=== PATIENT | male | born 1970 | race American Indian/Alaskan Native ===

== ENCOUNTER 2019-08-31 15:11 | Emergency (ER) | payer SELFPAY ==
--- NOTE | 2019-08-31 15:27 | Event Note ---
ED Screening Note Date of service: 08/31/19 Time: 15:24 ED Screening Note: presents with intentional overdose on trazadone 500 mg x about 2 hours ago This initial assessment/diagnostic orders/clinical plan/treatment(s) is/are subject to change based on patients health status, clinical progression and re- assessment by fellow clinical providers in the ED. Further treatment and workup at subsequent clinical providers discretion. Patient/guardian urged not to elope from the ED as their condition may be serious if not clinically assessed and managed. Initial orders include: labs
[2019-08-31 16:18] LABS: Basophils % (Auto) 0.4 % (0.0-1.8); Eosinophils % (Auto) 0.1 % (0.0-4.3); Hematocrit 46.8 % (35.5-45.6); Hemoglobin 15.7 gm/dl (11.8-15.2); Lymphocytes # (Auto) 0.7 K/mm3 (1.2-5.4); Lymphocytes % (Auto) 8.8 % (13.4-35.0); Mean Corpuscular HGB Conc 33 % (32-34); Mean Corpuscular Volume 94 fl (84-94); Monocytes # (Auto) 0.6 K/mm3 (0.0-0.8); Monocytes % (Auto) 8.1 % (0.0-7.3); Platelet Count 207 K/mm3 (140-440); Red Blood Count 4.98 M/mm3 (3.65-5.03)
[2019-08-31 16:19] LABS: Benzodiazepines Screen,Urine PRESUMPTIVE NEGATIVE; Cocaine Screen,Urine PRESUMPTIVE NEGATIVE; Methadone Screen,Urine PRESUMPTIVE NEGATIVE; Opiate Screen,Urine PRESUMPTIVE NEGATIVE
[2019-08-31 16:35] LABS: Amphetamine Screen,Urine PRESUMPTIVE POSITIVE; Cannabinoid Screen,Urine PRESUMPTIVE POSITIVE
[2019-08-31 16:37] LABS: Alanine Aminotransferase 16 units/L (7-56); Albumin 4.6 g/dL (3.9-5); BUN/Creatinine Ratio 13; Blood Urea Nitrogen 12 mg/dL (9-20); Calcium 9.1 mg/dL (8.4-10.2); Hemolysis Index 9
--- NOTE | 2019-08-31 16:57 | Emergency Department Report ---
History of Present Illness - General Chief Complaint: Overdose Stated Complaint: MH EVAL Time Seen by Provider: 08/31/19 15:23 Source: patient Mode of arrival: Ambulatory Limitations: No Limitations - History of Present Illness Initial Comments: 48-year-old male with history of schizophrenia presents to ED with suicide attempt. Patient states at around 1 PM he took five Trazadone 100 mg pills. Patient reports auditory hallucinations telling him to kill himself. Patient reports he is also going through some other problems in his life that he would not elaborate on. Patient reports previous suicide attempt in the past. MD Complaint: intentional overdose -: This afternoon Intent: suicide attempt How Overdose Was Discovered: other (presented to ER) Context: Intentional Overdose: hearing voices Associated Symptoms: depression, hallucinations Treatments Prior to Arrival: none - Related Data Previous Rx's Medication Instructions Recorded Last Taken Type FLUoxetine [PROzac] 40 mg PO DAILY #60 capsule 09/03/19 Unknown Rx Melatonin [Melatonin 5MG TAB] 5 mg PO QHS #30 tablet 09/03/19 Unknown Rx Nicotine [Habitrol] 21 mg TD DAILY #30 patch 09/03/19 Unknown Rx OLANzapine [Zyprexa] 20 mg PO DAILY #60 tablet 09/03/19 Unknown Rx Allergies Allergy/AdvReac Type Severity Reaction Status Date / Time No Known Allergies Allergy Unverified 08/31/19 15:17 ED Review of Systems ROS: Stated complaint: MH EVAL Other details as noted in HPI Comment: All other systems reviewed and negative Psychiatric: depression, auditory hallucinations, suicidal thoughts. denies: homicidal thoughts ED Past Medical Hx - Past Medical History Previous Medical History?: Yes Hx Arthritis: Yes Hx Psychiatric Treatment: Yes (Schizophrenia) - Surgical History Past Surgical History?: No - Social History Smoking Status: Current Every Day Smoker Substance Use Type: Marijuana - Medications Home Medications: Home Medications Medication Instructions Recorded Confirmed Last Taken Type FLUoxetine [PROzac] 40 mg PO DAILY #60 capsule 09/03/19 Unknown Rx Melatonin [Melatonin 5MG TAB] 5 mg PO QHS #30 tablet 09/03/19 Unknown Rx Nicotine [Habitrol] 21 mg TD DAILY #30 patch 09/03/19 Unknown Rx OLANzapine [Zyprexa] 20 mg PO DAILY #60 tablet 09/03/19 Unknown Rx ED Physical Exam - General Limitations: No Limitations General appearance: alert, in no apparent distress - Head Head exam: Present: atraumatic, normocephalic - Eye Eye exam: Present: normal appearance - ENT ENT exam: Present: mucous membranes moist - Neck Neck exam: Present: normal inspection - Respiratory Respiratory exam: Present: normal lung sounds bilaterally. Absent: respiratory distress - Cardiovascular Cardiovascular Exam: Present: regular rate, normal rhythm - GI/Abdominal GI/Abdominal exam: Present: soft. Absent: distended - Extremities Exam Extremities exam: Present: normal inspection - Neurological Exam Neurological exam: Present: alert, oriented X3 - Psychiatric Psychiatric exam: Present: depressed, suicidal ideation - Skin Skin exam: Present: warm, dry, intact, normal color ED Course Vital Signs 08/31/19 08/31/19 08/31/19 15:20 16:05 18:00 Temperature 98.8 F 98.4 F Pulse Rate 99 H 84 86 Respiratory 18 18 20 Rate Blood Pressure 143/93 Blood Pressure 136/90 140/83 [Right] O2 Sat by Pulse 95 98 96 Oximetry 08/31/19 08/31/19 08/31/19 19:15 19:45 20:00 Temperature 98.5 F Pulse Rate 78 68 72 Respiratory 19 17 17 Rate Blood Pressure 134/90 124/81 136/87 Blood Pressure 136/87 [Right] O2 Sat by Pulse 95 98 95 Oximetry 08/31/19 08/31/19 08/31/19 20:15 20:30 20:45 Temperature Pulse Rate 67 70 73 Respiratory 21 22 19 Rate Blood Pressure 132/81 113/76 107/82 Blood Pressure [Right] O2 Sat by Pulse 96 96 94 Oximetry 08/31/19 08/31/19 08/31/19 21:00 21:16 21:30 Temperature Pulse Rate 72 91 H 68 Respiratory 13 16 12 Rate Blood Pressure 123/75 123/75 115/68 Blood Pressure [Right] O2 Sat by Pulse 94 95 96 Oximetry 08/31/19 08/31/19 08/31/19 21:45 22:00 22:15 Temperature Pulse Rate 67 65 64 Respiratory 19 11 L 17 Rate Blood Pressure 118/65 112/73 114/72 Blood Pressure [Right] O2 Sat by Pulse 97 98 97 Oximetry 09/01/19 09/01/19 09/01/19 02:15 09:07 19:46 Temperature 99.0 F 98.6 F 97.3 F L Pulse Rate 85 86 75 Respiratory 18 16 16 Rate Blood Pressure Blood Pressure 120/78 124/92 110/78 [Right] O2 Sat by Pulse 95 97 93 Oximetry 09/02/19 09/02/19 09/02/19 01:50 10:38 19:23 Temperature 97.3 F L 98.3 F 98.3 F Pulse Rate 66 84 84 Respiratory 16 12 18 Rate Blood Pressure Blood Pressure 132/83 108/85 135/92 [Right] O2 Sat by Pulse 96 99 98 Oximetry 09/03/19 09/03/19 02:00 10:00 Temperature 98.3 F Pulse Rate 86 88 Respiratory 18 18 Rate Blood Pressure Blood Pressure 136/88 136/89 [Right] O2 Sat by Pulse 98 99 Oximetry ED Medical Decision Making - Lab Data Result diagrams: 08/31/19 15:57 08/31/19 15:57 - EKG Data -: EKG Interpreted by Me EKG shows normal: sinus rhythm, axis, intervals, QRS complexes, ST-T waves Rate: normal - EKG Data Interpretation: no acute changes - Medical Decision Making 48-year-old male presents to ED following suicide attempt by attempted overdose. Patient placed on 1013. Labs and EKGs 2 are unremarkable. Signs are normal. Patient is medically clear for mental health evaluation. Will dispo per psych. Critical care attestation.: If time is entered above; I have spent that time in minutes in the direct care of this critically ill patient, excluding procedure time. ED Disposition Clinical Impression: Suicide attempt by substance overdose Disposition: DC-01 TO HOME OR SELFCARE Is pt being admited?: No Condition: Stable Prescriptions: Melatonin [Melatonin 5MG TAB] 5 mg PO QHS #30 tablet Nicotine [Habitrol] 21 mg TD DAILY #30 patch FLUoxetine [PROzac] 40 mg PO DAILY #60 capsule OLANzapine [Zyprexa] 20 mg PO DAILY #60 tablet Referrals: GOGO MATHIS MD [Primary Care Provider] - 3-5 Days
[2019-08-31 18:19] LABS: Bilirubin,Urine NEG (Negative); Blood,Urine NEG (Negative); Color,Urine Yellow (Yellow); Mucus,Urine FEW /HPF; Protein,Urine <15 mg/dL mg/dL (Negative); RBC,Urine < 1.0 /HPF (0.0-6.0); Urobilinogen,Urine < 2.0 mg/dL (<2.0)
--- NOTE | 2019-09-01 11:08 | Progress Note ---
Subjective - Reason for Consult Consult date: 09/01/19 Reason for consult: Assess and manage mental health - Chief Complaint Chief complaint: Chief complaint: SI, A/hallucinations, severe depression HPI Mr. Gonzalez is a 48y/o male patient who is admitted to the ED for suicidal attempt with overdose on trazodone after his daughter brought him in, according to the patient. He is lying down. A/o x 4, calm and cooperative. He is speaking in a barely audible tone. He says he "wanted to end his life." He says he has a history of depression and schizophrenia. The patient feels like his medications help him but not as effective as they should be. Mr. Gonzalez c/o auditory hallucinations. He says "I can't sleep because I'm bothered by the voices." He says "as long as I'm awake I hear them. Can you imagine your thoughts being audible." He says the voices make "suggestions, like kill yourself." When asking the patient of present suicidal ideation, Mr. Gonzalez replies, "depressed and suicidal," but states he "doesn't want to feel this way." He says he has no support system and has "so much difficulty focusing." The patient says his appetite is good, "I stay hungry all the time but I've lost a lot of weight over the last few months." 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; 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 Access to guns/weapons: denies Education: Some college History of Abuse: Denies Legal History: Denies REVIEW OF SYSTEMS Constitutional: "lost a lot of weight over the last few months" ENT: Negative for stridor Respiratory: Negative for cough or hemoptysis All other systems reviewed and are negative MENTAL STATUS General Appearance and Behavior: age appropriate, fair eye contact, cooperative with questioning and polite Cooperation: Cooperative, calm Psychomotor Behavior: within normal limits Mood: Depressed Affect and affective range: Congruent with stated mood Thought Process: Goal-directed Thought Content: Auditory hallucinations Speech: low tone Intellectual Functioning Average Suicidal Ideation: Yes Homicidal Ideation: Denies HI Impulse Control: intact Insight and Judgment: Limited Memory: Normal Attention: Normal Orientation: alert and oriented ASSESSMENT Major Depressive Disorder, Severe with Psychotic Features Schizophrenia RECOMMENDATIONS MEDICATIONS *Prozac 40mg po daily to help decrease depressive symptoms *Zyprexa 20mg po daily to decrease hallucinations *Melatonin 5mg QHS to promote rest *Nicotine patch 21mg po daily Risks, benefits and alternatives of medications discussed with the patient, questions answered and consent obtained from patient. MEDICAL: Per primary team DELIRIUM PRECAUTIONS: Please re-orient patient frequently, keep lights on during the day, and minimize benzodiazepines and opiates as these medications could worsen patient's confusion. MEDICARE SPECIALIST: Defer to primary team DISPOSITION: Transfer to Acute inpatient psychiatric hospitalization when medically stable LEGAL STATUS: Involuntary FOLLOW-UP: Will continue to follow until patient is transferred The patient agreed on the treatment plan, understood the risk, benefit, alternative treatment, potential consequence of no treatment, and gave informed consent. I have reviewed this treatment plan, including potential risks and benefits of medications, with the patient and/or family members and relevant hospital providers. Please contact with any questions and/or concerns. Thank you for this consult. Mental Status Exam - Vital signs Last Vital Signs Temp 98.6 F 09/01/19 09:07 Pulse 86 09/01/19 09:07 Resp 16 09/01/19 09:07 BP 124/92 09/01/19 09:07 Pulse Ox 97 09/01/19 09:07
[2019-09-01] MEDS: NICOTINE 21 MG/24 HR PATCH TD SCH (13:04)
[2019-09-01] MEDS ORDERED: FLUoxetine 20 MG CAP ONE (14:24)
[2019-09-01] MEDS: FLUoxetine 20 MG CAP PO SCH (14:34)
[2019-09-02] MEDS: MELATONIN 5 MG TAB PO SCH ×2 (00:09→22:53)
--- NOTE | 2019-09-02 09:52 | Consultation ---
History of Present Illness - Reason for Consult Consult date: 09/02/19 Reason for consult: Psych follow up - Chief Complaint Chief complaint: Depressed, hearing voices and suicidal - History of Present Psychiatric Illness Patient reviewed this morning. He is quiet and withdrawn. He reports feeling depressed, continues to hear voices that tell him to kill himself and he endorses being suicidal. He denies paranoia/Homicidal thoughts thoughts. His UDS is positive for Amphetamines and THC but patient denies using substances when asked this morning. He is compliant with his medications and denies side effects. 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 Access to guns/weapons: denies Education: Some college History of Abuse: Denies Legal History: Denies REVIEW OF SYSTEMS Constitutional: "lost a lot of weight over the last few months" ENT: Negative for stridor Respiratory: Negative for cough or hemoptysis All other systems reviewed and are negative MENTAL STATUS General Appearance and Behavior: age appropriate, fair eye contact, cooperative with questioning and polite Cooperation: Cooperative, calm Psychomotor Behavior: within normal limits Mood: Depressed Affect and affective range: Congruent with stated mood Thought Process: Goal-directed Thought Content: Auditory hallucinations Speech: low tone Intellectual Functioning Average Suicidal Ideation: Yes Homicidal Ideation: Denies HI Impulse Control: intact Insight and Judgment: Limited Memory: Normal Attention: Normal Orientation: alert and oriented ASSESSMENT Major Depressive Disorder, Severe with Psychotic Features Schizophrenia RECOMMENDATIONS MEDICATIONS: Continue current meds *Prozac 40mg po daily to help decrease depressive symptoms *Zyprexa 20mg po daily to decrease hallucinations *Melatonin 5mg QHS to promote rest *Nicotine patch 21mg po daily Risks, benefits and alternatives of medications discussed with the patient, questions answered and consent obtained from patient. MEDICAL: Per primary team DELIRIUM PRECAUTIONS: Please re-orient patient frequently, keep lights on during the day, and minimize benzodiazepines and opiates as these medications could wor sen patient's confusion. 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 I have reviewed this treatment plan, including potential risks and benefits of medications, with the patient and/or family members and relevant hospital providers. Please contact with any questions and/or concerns. Thank you for this consult. Medications and Allergies Allergies Allergy/AdvReac Type Severity Reaction Status Date / Time No Known Allergies Allergy Unverified 08/31/19 15:17 Home Medications Medication Instructions Recorded Confirmed Last Taken Type FLUoxetine 20 mg PO QDAY 08/31/19 08/31/19 Unknown History OLANZapine [Zyprexa] 15 mg PO QHS 08/31/19 08/31/19 Unknown History Active Meds: Active Medications Fluoxetine HCl (Prozac) 40 mg PO DAILY [facility] Last Admin: 09/01/19 14:34 Dose: 40 mg Documented by: Melatonin (Melatonin) 5 mg PO QHS [facility] Last Admin: 09/02/19 00:09 Dose: Not Given Documented by: Nicotine (Habitrol) 21 mg TD DAILY [facility] Last Admin: 09/01/19 13:04 Dose: 21 mg Documented by: Olanzapine (Zyprexa) 20 mg PO DAILY [facility] Last Admin: 09/01/19 14:35 Dose: 20 mg Documented by: Mental Status Exam - Vital signs Last Vital Signs Temp 97.3 F L 09/02/19 01:50 Pulse 66 09/02/19 01:50 Resp 16 09/02/19 01:50 BP 132/83 09/02/19 01:50 Pulse Ox 96 09/02/19 01:50 Results Result Diagrams: 08/31/19 15:57 08/31/19 15:57 All other labs normal.
[2019-09-02] MEDS: FLUoxetine 20 MG CAP PO SCH (10:35)
[2019-09-02] MEDS: NICOTINE 21 MG/24 HR PATCH TD SCH (12:47)
--- NOTE | 2019-09-03 11:04 | Progress Note ---
Subjective - Reason for Consult Consult date: 09/03/19 Reason for consult: Psych follow up - Chief Complaint Chief complaint: Patient reviewed this morning. He reports feeling ok. He denies SI/HI/AVH. He feels safe being discharged home. He plans to follow up with Dr. Olmos at [facility]. He wants his medications scripted to [facility] at [facility] in [place]. He wants Staff to help him call his daughter to tell her to come transport him back to her place. He is compliant with his medications and denies side effects. REVIEW OF SYSTEMS Constitutional: NAD ENT: Negative for stridor Respiratory: Negative for cough or hemoptysis All other systems reviewed and are negative MENTAL STATUS General Appearance and Behavior: age appropriate, fair eye contact, cooperative with questioning and polite Cooperation: Cooperative, calm Psychomotor Behavior: within normal limits Mood: OK Affect and affective range: Congruent with stated mood Thought Process: Goal-directed Thought Content: Normal Speech: low tone Intellectual Functioning Average Suicidal Ideation: Denies SI Homicidal Ideation: Denies HI Impulse Control: intact Insight and Judgment: Good Memory: Normal Attention: Normal Orientation: alert and oriented ASSESSMENT Major Depressive Disorder, Severe with Psychotic Features Schizophrenia RECOMMENDATIONS MEDICATIONS: Will discharge home on current meds *Prozac 40mg po daily to help decrease depressive symptoms *Zyprexa 20mg po daily to decrease hallucinations *Melatonin 5mg QHS to promote rest *Nicotine patch 21mg po daily Risks, benefits and alternatives of medications discussed with the patient, questions answered and consent obtained from patient. 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 Please contact with any questions and/or concerns. Thank you for this consult. Mental Status Exam - Vital signs Last Vital Signs Temp 98.3 F 09/03/19 02:00 Pulse 86 09/03/19 02:00 Resp 18 09/03/19 02:00 BP 136/88 09/03/19 02:00 Pulse Ox 98 09/03/19 02:00
[2019-09-03] MEDS: FLUoxetine 20 MG CAP PO SCH (11:38)
[2019-09-03] MEDS: NICOTINE 21 MG/24 HR PATCH TD SCH (11:38)
[2019-09-03 12:23] VITALS: BP 136/89
== END 2019-09-03 12:21 | disposition home or self-care (01) ==
LOC: EEVIPCON 15:11 → ED 15:11
DX: F32.9 Major depressive disorder, single episode, unspecified (principal); F20.9 Schizophrenia, unspecified; M19.90 Unspecified osteoarthritis, unspecified site; F17.200 Nicotine dependence, unspecified, uncomplicated; F12.10 Cannabis abuse, uncomplicated; Z79.899 Other long term (current) drug therapy
CPT/HCPCS: 36415; 80053; 80307; 80320; 81001; 82550; 83735; 84484; 85025; 93005; 93010; G0480